=== PATIENT | female | born 1990 | race Caucasian/White ===

== ENCOUNTER 2018-02-08 03:32 | Inpatient (IN) ==
--- OUTSIDE RECORDS SUMMARY | 2018-02-08 06:16 | External Medical Summary | Continuity of Care Document ---
:1990 Author Organization [facility] Address [address] [place], [place] [id number] Phone Allergies, Adverse Reactions, Alerts Substance Reaction Severity Status metronidazole hives Unknown Active Medications Medication Instructions Dosage Effective Dates (start - Status Comments stop) ORAL TABLET - Active Problems Condition Effective Dates (start - stop) Clinical Status Encounter for suprvsn of normal - , second trimester 18 weeks gestation of - Encounter for suprvsn of normal - , first trimester 10 weeks gestation of - Hirsutism Irregular Menses Hirsutism - Irregular Menses 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 Pap Smear Screening, Cervix Matern care for oth or susp poor fetl - grth, 2nd tri, unsp 18 weeks gestation of - Encounter for suprvsn of normal - , second trimester 14 weeks gestation of - Procedures Procedure Date OB Visit No Charge - 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 Provider: Health [place], , second 7 [address] [place] Ashraf [email or web address] weeks Medical K, 700 1522, gestation of [place] Nickolas Yepez, , [facility] [place], 120, [place] 120, [id number], [place], [place], tel:[phone]. , [place]. tel: tel: [phone] Wan Matern care for Nov-0 Ashraf Referring In Womens Ultrasound oth or susp poor 6-201 [place]. Provider: Qian LUNDBERG, fetl grth, 2nd 7 [address] [place] Ashraf PO Box tri, [email or web address] weeks Medical , 700 1522, gestation of [facility], , [facility] [place], 120, [place] 120, [id number], [place], [place]O, tel: [phone]. , [place]. tel: tel: [phone] Wan Encounter for Oct-0 Ashraf Referring In Womens suprvsn of normal 3-201 [place]. Provider: Qian LUNDBERG, , second 7 [address] [place] Ashraf [address] [email or web address] weeks Medical , 700 1522, [facility], , [facility] Dr AGUAYO, 120, [place] 120, [id number], [place], [place], tel: [phone]. , [place]. tel: tel: [phone] Wan Encounter for Sep-0 Ashraf Referring In Womens suprvsn of normal 5-201 [place]. Provider: Qian LUNDBERG, , first 7 [address] [place] Ashraf [address] [email or web address] weeks Medical , 700 1522, gestation of [facility] [place], , [facility] Dr AGUAYO, 120, [place] 120, [id number], [place], [place], tel: [phone]. , [place]. tel: tel: [phone] Wan Hirsutism Nov-2 Ashraf Referring In Womens 8-201 [place]. Provider: Qian LUNDBERG, 6 700 [place] Ashraf PO Box Medical , 700 1522, [facility] [place], , [facility] Dr AGAUYO, 120, [place] 120, [id number], [place], [place], [place], tel:[phone]. , [place]. tel: tel: [phone] [facility] [place] HirsutismIrregula Sep- Ashraf In Womens r Menses 7-201 [place]. Health [place], 6 700 [address] Medical [address], [place] [address] [place], [place], 120, [id number], [facility] [place], tel: [phone] , [place]. tel: [phone] Peace [place] Irregular Adria-2 Ashraf Referring In Womens MensesEncntr for 8-201 [place]. Provider: Health [place], newswriter exam 6 700 [place] Ashraf PO Box (general) Medical K, 700 1522, (routine) w/o abn [place] Yepez, findingsPap Smear , [facility] Dr AGUAYO, Screening, Cervix 120, [place] 120, , [place], [place], [place], [place], tel: [phone]. , [place]. tel: tel: [phone] Peace Wan Aug-0 Ashraf In Womens 4-201 [place]. Health [place], 3 700 [address] Medical [address], [place] [address] [place], [facility] [place], 120, [id number], [facility] [place], tel: [phone] , [place]. tel: [phone] Family History Family Member Diagnosis Age At Onset No family history of Breast Cancer No family history of Pulmonary Embolism No family history of Uterine Cancer No family history of Venous Thrombosis Maternal Grandfather Cardiovascular Disease No family history of Ovarian Cancer Maternal Grandmother Thyroid Disorder No family history of Colon Cancer Immunizations Vaccine Date Status Comments Unknown Payers Payer name Insurance type Covered constitution party ID Authorization(s) NATALIE CRESPO [id number] Social History Type Description Quantity Date Captured Alcohol Use Details No Caffeine Use Details soda 16 oz per day Tobacco Use Status Ex-cigarette smoker Smoking Status Former smoker Vital Signs Date / Height Weight BMI Pulse Blood Temperature Respiratory Body Head BMI Time: Rate Pressure Rate Surface Circumference percentile Area 146.30 22.9 112/71 lbs 1 mm[Hg] 8:45 kg/m AM eter (2) Chief Complaint And Reason For Visit Unknown Chief Complaint And Reason For Visit Reason For Referral Reason For Referral Unknown Plan Of Care Date Type Action Status Goal Tobacco cessation counseling completed Appointment Mechelle Ware BOOKED Future Order: Lab Order Pap Smear With HPV Reflex If Ordered ASCUS ([id number]) Future Order: Radiology Order Complete OB Ultrasound > 14 Ordered Weeks ([id number]) Date Type Problem Goal Intervention Status Start Date Unknown. History Of Present Illness Encounter Date Complaint History Of Present Illness This patient has no known history of present illness Functional Status Encounter Date Functional Assessment Cognitive Assessment Unknown Medications Administered Medication Instructions Dosage Effective Dates (start - stop) Status Comments Drug Treatment Unknown Instructions Date Instruction Additional Information HIV and other routine tests risk factors identified by history anticipated course of care nutrition and weight gain counseling, special diet toxoplasmosis precautions (cats / raw meat) exercise indications for ultrasound influenza vaccine environmental / work hazards travel tobacco (ask, advise, assess, assist and arrange) alcohol illicit / recreational drugs use of any medications (including supplements, vitamins, herbs, OTC drugs) smoking counseling domestic violence seat belt use genetic testing new ob handbook Zika virus assessment & precautions dentist
--- OUTSIDE RECORDS SUMMARY | 2018-02-08 06:16 | External Medical Summary | Continuity of Care Document ---
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 Pap Smear Screening, Cervix Matern care for oth or susp poor fetl - grth, 2nd tri, unsp 18 weeks gestation of - Encounter for suprvsn of normal - , second trimester 26 weeks gestation of - Encounter for suprvsn of normal - , second trimester 14 weeks gestation of - Encounter for suprvsn of normal - , second trimester 18 weeks gestation of - Encounter for suprvsn of normal - , second trimester 23 weeks gestation of - Encounter for suprvsn of normal - , third trimester 32 weeks gestation of - Encounter for suprvsn of normal - , third trimester 28 weeks gestation of - Procedures Procedure Date Immuniz admnin, 1 vac, sngl/combo 19 Yrs + TDAP VACCINE >7 IM non-stress test OB Visit No Charge Results Test Name Date and Time Measure Units Reference Range Abnormal Flag Comments Unknown Advance Directives Directive Yes / No Effective Date File Name Unknown Encounters Encounter Practice Location Reason(s) Diagnoses Date Provider Care Team Description For Visit Members Peace Wan Encounter for Dec-0 Ashraf Referring In Womens suprvsn of normal 6-201 [place]. Provider: Health TAMIKA, , third 8 [address] [place] Ashraf [address] [email or web address] weeks Medical , 700 1522, gestation of [facility] [place], , [facility] Dr AGUYAO, 120, [place] 120, [id number], [place], [place] AGUAYO, tel: [phone]. , [place]. tel: tel: [phone] Peace Wan Decreased Nov- Ashraf Referring In Womens movements, third 3-201 [place]. Provider: Health TAMIKA, trimester, unsp30 8 700 [place] Ashraf PO Box weeks gestation Medical K, 700 1522, of [place] Nickolas Yepez, , [facility] Dr AGUAYO, 120, [place] 120, [id number], [place], [place], tel: [phone]. , [place]. tel: tel: [phone] Peace Wan Encounter for Nov-0 Ashraf Referring In Womens suprvsn of normal 9-201 [place]. Provider: Health TAMIKA, , third 8 [address] [place] Ashraf PO Box weeks Medical , 700 1522, gestation of [place] Nickolas Yepez, , [facility] Dr AGUAYO, 120, [place] 120, [id number], [place], [place], tel: [phone]. , [place]. tel: tel: [phone] Peace Wan Encounter for Oct-2 Ashraf Referring In Womens suprvsn of normal 6-201 [place]. Provider: Health TAMIKA, , second 7 [address] [place] Ashraf PO [address] [email or web address] weeks Medical , 700 1522, gestation of [facility], , [facility] Dr AGUAYO, 120, [place] 120, [id number], [place], [place], tel: [phone]. , [place]. tel: tel: [phone] Peace Wan Encounter for Dec-0 Ashraf Referring In Womens suprvsn of normal 5-201 [place]. Provider: Health TAIMKA, , second 7 [address] [place] Ashraf PO [address] [email or web address] weeks Medical , 700 1522, gestation of [facility], , [facility] Dr AGUAYO, 120, [place] 120, [id number], [place], [place], tel: [phone]. , [place]. tel: tel: [phone] Wan Encounter for Nov-0 Ashraf Referring In Womens suprvsn of normal 6-201 [place]. Provider: Qian LUNDBERG, , second 7 [address] [place] Ashraf PO Box [email or web address] weeks Medical , 700 1522, gestation of [facility], , [facility] Dr AGUAYO, 120, [place] 120, [id number], [place], [place], tel: [phone]. , [place]. tel: tel: [phone] Wan Matern care for Nov-0 Ashraf Referring In Womens Ultrasound oth or susp poor 6-201 [place]. Provider: Health TAMIKA, fetl grth, 2nd 7 [address] [place] Ashraf PO Box tri, [email or web address] weeks Medical , 700 1522, [facility], , [facility] Dr AGUAYO, 120, [place] 120, [id number], [place], [place]UAY[place], tel: [phone]. , [place]. tel: tel: [phone] Wan Encounter for Oct-0 Ashraf Referring In Womens suprvsn of normal 3-201 [place]. Provider: Qian LUNDBERG, , second 7 [address] [place] Ashraf PO Box [email or web address] weeks Medical , 700 1522, gestation of [place] Nickolas Yepez, , [facility] Dr AGUAYO, 120, [place] 120, [id number], [place], [place], [place], tel:[phone]. , [place]. tel: tel: [phone] Peace Wan Encounter for Sep-0 Ashraf Referring In Womens suprvsn of normal 5-201 [place]. Provider: Qian LUNDBERG, , first 7 [address] [place] Ashraf PO Box [email or web address] weeks Medical , 700 1522, gestation of [place] Nickolas Yepez, , [facility] [place], 120, [place] 120, , [place], [place], [place], tel:[phone]. , [place]. tel: tel: [phone] Peace [place] Hirsutism Nov-2 Ashraf Referring In Womens 8-201 [place]. Provider: Qian LUNDBERG, 6 700 [place] Ashraf PO Box Medical , 700 1522, [place] [address], [facility] Dr AGUAYO, 120, [place] 120, [id number], [place], [place], [place], tel: [phone]. , [place]. tel: tel: [phone] [place] HirsutismIrregula Nov-1 Ashraf In Womens r Menses 7-201 [place]. Health TAMIKA, 6 700 PO [address] Medical [address], [place] [address] [place], [facility] [place], 120, [id number], [place], [place], tel: [phone] , [place]. tel: [phone] [place] Irregular Adria-2 Ashraf Referring In Womens MensesEncntr for 8-201 [place]. Provider: Health TAMIKA, dope mixer exam 6 700 [place] Ashraf PO Box (general) Medical , 700 1522, (routine) w/o abn [place] Nickolas Yepez, findingsPap Smear , [facility] Dr AGUAYO, Screening, Cervix 120, [place] 120, [id number], [place], [place], [place], tel: [phone]. , . tel: tel: [phone] Peace Wan Aug- Ashraf In Womens 4-201 [place]. [facility], 3 700 PO [place] [facility] [address], [place] [address] [place], [facility] [place], 120, [id number], [facility] [place], tel: [phone] , [place]. tel: [phone] Family History Family Member Diagnosis Age At Onset No family history of Breast Cancer No family history of Pulmonary Embolism No family history of Uterine Cancer No family history of Venous Thrombosis Maternal Grandfather Cardiovascular Disease No family history of Ovarian Cancer Maternal Grandmother Thyroid Disorder No family history of Colon Cancer Immunizations Vaccine Date Status Comments Tdap completed Source: New Immunization Record Payers Payer name Insurance type Covered constitution party ID Authorization(s) [facility] CI [id number] [employer] [place] - Medicaid MC [id number] [facility] [id number] [facility] CI [id number] Social History Type Description Quantity Date Captured Alcohol Use Details No Caffeine Use Details Unknown Tobacco Use Status Smoking Status Former smoker Vital Signs Date / Height Weight BMI Pulse Blood Temperature Respiratory Body Head BMI Time: Rate Pressure Rate Surface Circumference percentile Area 152.10 23.8 111/ lbs 2 mm[Hg] 11:18 kg/m AM eter (2) Chief Complaint And [...] Complete OB Ultrasound > 14 Ordered Weeks (45656) Date Type Problem Goal Intervention Status Start Date Unknown. History Of Present Illness Encounter Date Complaint History Of Present Illness This patient has no known history of present illness Functional Status Encounter Date Functional Assessment Cognitive Assessment Unknown Medications Administered Medication Instructions Dosage Effective Dates (start - stop) Status Comments Drug Treatment Unknown Instructions Date Instruction Additional Information gestational glucose lab screening HIV and other routine tests risk factors [...]
--- OUTSIDE RECORDS SUMMARY | 2018-02-08 06:16 | External Medical Summary | Continuity of Care Document ---
:1990 Author Organization [facility] Address [address] [place] [id number] Phone Allergies, Adverse Reactions, Alerts Substance Reaction Severity Status metronidazole hives Unknown Active Medications Medication Instructions Dosage Effective Dates Status Comments (start - stop) ORAL - Active TABLET amoxicillin 500 mg take 1 tablet by 500 MG - No Longer tablet oral route every 8 Active hours Problems Condition Effective Dates (start - stop) Clinical Status Encounter for suprvsn of normal - , second trimester 23 weeks gestation of - Encounter for suprvsn of normal - , first trimester 10 weeks gestation of - Hirsutism Irregular Menses Hirsutism - Irregular Menses 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 Provider: Qian LUNDBERG, , second 7 [address] [place] Ashraf PO Box [email or web address] weeks Medical , 700 1522, gestation of [facility], , [facility] Dr AGUAYO, 120, [place] 120, , [place], [place], [place], tel: [phone]. , [place]. tel: tel: [phone] Peace Wan Encounter for Dec-0 Ashraf Referring In Womens suprvsn of normal 5-201 [place]. Provider: Qian LUNDBERG, , second 7 700 [place] Ashraf PO Box [email or web address] weeks [facility], 700 1522, gestation of [facility], , [facility] Dr AGUAYO, 120, [place] 120, , [place], [place], [place], tel: [phone]. , [place]. tel: tel: [phone] [place] Wan Encounter for Nov-0 Ashraf Referring In Womens suprvsn of normal 6-201 [place]. Provider: Qian LUNDBERG, , second 7 [address] [place] Ashraf PO Box [email or web address] weeks Medical , 700 1522, gestation of [facility], , [facility] Dr AGUAYO, 120, [place] 120, [id number], [place], [place], [place], tel: [phone]. , [place]. tel: tel: [phone] Peace Wan Matern care for Nov-0 Ashraf Referring In Womens Ultrasound oth or susp poor 6-201 [place]. Provider: Qian LUNDBERG, fetl grth, 2nd 7 [address] [place] Ashraf PO Box tri, [email or web address] weeks [facility], 700 1522, gestation of [facility], , [facility] Dr AGUAYO, 120, [place] 120, , [place], [place], [place], tel: [phone]. , [place]. tel: tel: [phone] [place] Wan Encounter for Oct-0 Ashraf Referring In Womens suprvsn of normal 3-201 [place]. Provider: Qian LUNDBERG, , second 7 [address] [place] Ashraf PO Box [email or web address] weeks Medical , 700 1522, gestation of [facility] [place], , [facility] Dr AGUAYO, 120, [place] 120, [id number], [place], [place], [place], tel: [phone]. , [place]. tel: tel: [phone] [place] Encounter for Sep-0 Ashraf Referring In Womens suprvsn of normal 5-201 [place]. Provider: Qian LUNDBERG, , first 7 [address] [place] Ashraf PO Box [email or web address] weeks Medical , 700 1522, gestation of [facility] [place], , [facility] Dr AGUAYO, 120, [place] 120, , [place], [place], [place], tel: [phone]. , [place]. tel: tel: [phone] [facility] [place] Hirsutism Nov-2 Ashraf Referring In Womens 8-201 [place]. Provider: Qian LUNDBERG, 6 700 [place] Ashraf PO Box Medical , 700 1522, [place] [address], [facility] Dr [place], 120, [place] 120, [id number], [place], [facility], [place], tel: [phone]. , [place]. tel: tel: [phone] [place] HirsutismIrregula Nov-1 Ashraf In Womens r Menses 7-201 [place]. Qian LUNDBERG, 6 700 [address] Medical [address], [place] [address] [place], [facility] [place], 120, , [place], [facility], tel: [phone] , [place]. tel: [phone] [place] Irregular Adria-2 Ashraf Referring In Womens MensesEncntr for 8-201 [place]. Provider: Qian LUNDBERG, obgyn nurse exam 6 700 [place] Ashraf PO Box (general) Medical , 700 1522, (routine) w/o [facility] [place], findingsPap Smear , [facility] Dr AGUAY[place], Screening, [place]erv[place] 120, [place] 120, [id number], [place], [place], [place], tel: [phone]. , [place]. tel: tel: [phone] [place] Aug- Ashraf In Womens 4-201 [facility], 3 700 [facility] 1522, [place] [address] [place], [facility] [place], 120, [id number], [place], [place], tel: [phone] , [place]. tel: [phone] Family History Family Member Diagnosis Age At [...] Unknown Payers Payer name Insurance type Covered alliance party ID Authorization(s) [facility] [id number] Social History Type Description Quantity Date Captured Alcohol Use Details No Caffeine Use Details soda 16 oz per day Tobacco Use Status Ex-cigarette smoker Smoking Status Former smoker Vital Signs Date / Height Weight BMI Pulse Blood Temperature Respiratory Body Head BMI Time: Rate Pressure Rate Surface Circumference percentile Area 9 1 11:24 kg/m AM eter (2) 144.60 22.6 111/69 -2017 lbs 4 mm[Hg] 11:28 kg/m AM eter (2) Chief Complaint And [...] Complete OB Ultrasound > 14 Ordered Weeks (40927) Date Type Problem Goal Intervention Status Start [...]
--- OUTSIDE RECORDS SUMMARY | 2018-02-08 06:16 | External Medical Summary | Continuity of Care Document ---
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) w/o abn findings Pap Smear Screening, Cervix Matern care for oth or susp poor fetl - grth, 2nd tri, unsp 18 weeks gestation of - Decreased movements, third - trimester, unsp 30 [...] weeks gestation of - Procedures Procedure Date Antepartum care only, 4-6 visits Results Test Name Date and Time Measure Units Reference Range Abnormal Flag Comments Unknown Advance Directives Directive Yes / No Effective Date File Name Unknown Encounters Encounter Practice Location Reason(s) Diagnoses Date Provider Care Team Description For Visit Members Peace Wan Encounter for Dec-0 Ashraf Referring In Womens suprvsn of normal 6-201 [place]. Provider: Qian ULNDBERG, , third 8 700 [place] Ashraf [email or web address] weeks Medical , 700 1522, [facility], , [facility] Dr AGUAYO, 120, [place] 120, , [place], [place], [place], tel: [phone]. , [place]. tel: tel: [phone] Peace Wan Decreased Irving-2 Ashraf Referring In Womens movements, third 3-201 [place]. Provider: Qian LUNDBERG, trimester, unsp30 8 700 [place] Ashraf PO Box weeks gestation Medical , 700 1522, of [facility] [place], , [facility] Dr AGUAYO, 120, [place] 120, , [place], [place], [place], tel: [phone]. , [place]. tel: tel: [phone] Peace Wan Encounter for Irving-0 Ashraf Referring In Womens suprvsn of normal 9-201 [place]. Provider: iQan LUNDBERG, , third 8 700 [place] Ashraf [address] [email or web address] weeks Medical , 700 1522, gestation of [facility], , [facility] Dr AGUAYO, 120, [place] 120, [id number], [place], [place], [place], tel: [phone]. , [place]. tel: tel: [phone] Peace Wan Encounter for Dec-2 Ashraf Referring In Womens suprvsn of normal 6-201 [place]. Provider: Qian LUNDBERG, , second 7 700 [place] Ashraf PO Box weeks Medical , 700 1522, gestation of [facility], , [facility] Dr AGUAYO, 120, [place] 120, [id number], [place], [place], [place], tel: [phone]. , [place]. tel: tel: [phone] Peace Wan Encounter for Dec-0 Ashraf Referring In Womens suprvsn of normal 5-201 [place]. Provider: Qian LUNDBERG, , second 7 700 [place] Ashraf PO [address] [email or web address] weeks Medical , 700 1522, gestation of [facility], , [facility] Dr AGUAYO, 120, [place] 120, [id number], [place], [place], [place], tel: [phone]. , [place]. tel: tel: [phone] Wan Encounter for Nov-0 Ashraf Referring In Womens suprvsn of normal 6-201 [place]. Provider: Qian LUNDBERG, , second 7 700 [place] Ashraf PO Box [id number] weeks [facility], 700 1522, gestation of [facility], , [facility] Dr AGUAYO, 120, [place] 120, [id number], [place], [place], [place], tel: [phone]. , [place]. tel: tel: [phone] Peace [facility] Matern care for Nov-0 Ashraf Referring In Womens Ultrasound oth or susp poor 6-201 [place]. Provider: Qian LUNDBERG, [facility]l [facility], 2nd 7 700 [place] Ashraf PO Box tri, [id number] weeks [facility], 700 1522, gestation of [facility], , [facility] Dr AGUAYO, 120, Paul 120, [id number], [place], [place], [place], tel: [phone]. , [place]. tel: tel: [phone] Wan Encounter for Oct-0 Ashraf Referring In Womens suprvsn of normal 3-201 [place]. Provider: Qian LUNDBERG, , second 7 700 [place] Ashraf PO Box [email or web address] weeks [facility], 700 1522, gestation of [facility], , [facility] Dr [place], 120, [place] 120, [id number], [place], [place], [place], tel: [phone]. , [place]. tel: tel: [phone] Peace Wan Encounter for Sep-0 Ashraf Referring In Womens suprvsn of normal 5-201 [place]. Provider: Health PA, , first 7 700 [place] Ashraf PO Box [id number] weeks [facility], 700 1522, gestation of [facility] [place], , [facility] [place], 120, [place] 120, [id number], [place], [facility], [place], tel: [phone]. , [place]. tel: tel: [phone] Peace Wan Sep-0 Ashraf Referring In Womens 5-201 [place]. Provider: Health TAMIKA, 7 700 [place] Ashraf PO [facility], 700 1522, [place] [address], [facility] [place], 120, [place] 120, [id number], [place], [facility], [place], tel: [phone]. , [place]. tel: tel: [phone] [facility] [place] H[facility]utism Nov-2 Ashraf Referring In Womens 8-201 [place]. Provider: Health TAMIKA, 6 700 [place] Ashraf PO Box [facility], 700 1522, [place] [address], [facility] Dr AGUAYO, 120, [place] 120, [id number], [place], [place], [place], tel: [phone]. , [place]. tel: tel: [phone] Peace [facility] HirsutismIrregula Nov-1 Ashraf In Womens r Menses 7-201 [place]. Health PA, 6 700 PO [place] [facility] [address], [place] [address] [place]uch[place], [facility] [place], 120, [id number], [place], [place], tel: [phone] , [place]. tel: [phone] Peace Wan Irregular Adria-2 Ashraf Referring In Women MensesEncntr for 8-201 [place]. Provider: Health TAMIKA, procedures analyst exam 6 700 [place] Ashraf PO Box (general) Medical K, 700 1522, (routine) w/o [facility] Medical [place], findingsPap Smear , [facility] Dr AGUAYO, Screening, Cervix 120, [place] 120, [id number], [place], [place], tel: [phone]. , [place]. tel: tel: [phone] Peace Wan Aug- Ashraf In Womens 4-201 [place]. Health TAMIKA, 3 700 PO Box Medical [address], [place] [address] Lucho, [facility] [place], 120, [id number], [place], [place], tel: [phone] , [place]. tel: [phone] Family History Family Member Diagnosis Age At [...] Covered constitution party ID Authorization(s) NATALIE CRESPO [id number] [facility] CI [id number] [employer] Plan Of [place] - Medicaid MC [id number] [facility] CI [id number] Social History Type Description Quantity Date Captured Unknown Vital Signs Date / Height Weight BMI Pulse Blood Temperature Respiratory Body Head BMI Time: Rate Pressure Rate Surface Circumference percentile Area Unknown Chief Complaint And Reason For Visit Unknown Chief Complaint And Reason For Visit Reason For Referral Reason For Referral Unknown Plan Of Care Date Type Action Status Goal Tobacco cessation counseling completed Appointment Mechelle Ware BOOKED Future Order: Lab Order Pap Smear With HPV Reflex If Ordered ASCUS (WPMPap1) Future Order: Radiology Order Complete OB Ultrasound > 14 Ordered Weeks ([id number]) Date Type Problem Goal Intervention Status Start [...]
--- OUTSIDE RECORDS SUMMARY | 2018-02-08 06:16 | External Medical Summary | Continuity of Care Document ---
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 Health PA, 7 700 PO Box Medical [address], [place] [address], [place], 120, [id number], [facility] [place], tel: [phone] , [place]. tel: [phone] Peace [place] Encounter for Sep-0 Ashraf Referring In Womens suprvsn of normal 5-201 [place]. Provider: Health PA, , first 7 700 [place] Ashraf PO Box [email or web address] weeks Medical K, 700 1522, gestation of [place]olas Yepez , [facility] [place], 120, [place] 120, [id number], [place], [place], [place], tel: [phone]. , [place]. tel: tel: [phone] [place] Hirsutism Nov-2 Ashraf Referring In Womens 8-201 [place]. Provider: Qian LUNDBERG, 6 700 [place] Ashraf PO Box Medical K, 700 1522, [place] [address], [facility] [place], 120, [place] 120, [id number], [place], [place], [place], tel:[phone]. , [place]. tel: tel: [phone] Peace Wan HirsutismIrregular Nov-1 Ashraf In Womens Menses 7-201 [place]. Qian LUNDBERG, 6 700 PO Box Medical [address], [place] [address], [facility] [place], 120, [id number], [facility] [place], tel: [phone] , [place]. tel: [phone] Peace Wan Irregular Adria-2 Ashraf Referring In Womens MensesEncntr for 8-201 [place]. Provider: Qian LUNDBERG, linen aide exam (general) 6 700 [place] Ashraf PO Box (routine) w/o [facility] Medical K, 700 1522, findingsPap Smear [facility] [place], [place], Cervix , [facility] Dr AGUAYO, 120, Paul 120, [id number], [place], [facility], [place], tel:[phone]. , [place]. tel: tel: [phone] Peace Wan Oct-0 Ashraf In Womens 4-201 [place]. Qian LUNDBERG, 3 700 [facility] Medical 15[address], [address], [facility] [place], 120, [id number], [facility] [place], tel: [phone] , [place]. tel: [phone] Family History Family Member Diagnosis Age At [...] Insurance type Covered alliance party ID Authorization(s) TOBY CRESPO [id number] Social History Type Description Quantity Date Captured [...] Order Pap Smear With HPV Reflex If ASCUS Ordered (WPMPap1) Date Type Problem Goal Intervention Status Start [...]
--- OUTSIDE RECORDS SUMMARY | 2018-02-08 06:16 | External Medical Summary | Continuity of Care Document ---
:1990 Author Organization 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 Pap Smear Screening, Cervix Procedures Procedure Date No Charge Sonogram Initial OB Visit No Charge Urine Culture OB Panel With An HIV Venpnctr fngr/heel/ear stick routne Cult, bactr, ident isolate, urine Cult bactr, aerobic, addl methods Suscept study, microdilut/agar FRANCISCA Results Test Name Date and Time Measure Units Reference Range Abnormal Flag Comments Panel Description: OBSTETRIC PANEL WHITE BLOOD CELL 7.4 Thousand/uL 3.8-10.8 N COUNT 16:06:00 RED BLOOD CELL 4.01 Million/uL 3.80-5.10 N COUNT 16:06:00 HEMOGLOBIN 12.3 g/dL 11.7-15.5 N 16:06:00 HEMATOCRIT 35.2 % 35.0-45.0 N 16:06:00 MCV 87.8 fL 80.0-100.0 N 16:06:00 MCH 30.7 pg 27.0-33.0 N 16:06:00 MCHC 34.9 g/dL 32.0-36.0 N 16:06:00 RDW 12.2 % 11.0-15.0 N 16:06:00 PLATELET COUNT 236 Thousand/uL 140-400 N 16:06:00 MPV 10.6 fL 7.5-12.5 N 16:06:00 ABSOLUTE 5002 cells/uL 2156-5122 N NEUTROPHILS 16:06:00 ABSOLUTE 1569 cells/uL 850-3900 N LYMPHOCYTES 16:06:00 ABSOLUTE 629 cells/uL 200-950 N MONOCYTES 16:06:00 ABSOLUTE 148 cells/uL 15-500 N EOSINOPHILS 16:06:00 ABSOLUTE 52 cells/uL 0-200 N BASOPHILS 16:06:00 NEUTROPHILS 67.6 % N 16:06:00 LYMPHOCYTES 21.2 % N 16:06:00 MONOCYTES 8.5 % N 16:06:00 EOSINOPHILS 2.0 % N 16:06:00 BASOPHILS 0.7 % N 16:06:00 ANTIBODY SCREEN, NO ANTIBODIES N RBC W/REFL ID, 16:06:00 DETECTED Reference range TITER AND AG No antibodies detected This assay is a screening test for the detection of red blood cell antibodies. The test is not to be used for pretransfusion screening or for the medical management of an alloimmunized . ABO GROUP B 16:06:00 RH TYPE RH(D) 16:06:00 POSITIVE RPR (DX) W/REFL NON-REACTIVE NON-REACTIV N TITER AND 16:06:00 E CONFIRMATORY TESTING HEPATITIS B NON-REACTIVE NON-REACTIV N SURFACE ANTIGEN 16:06:00 E RUBELLA ANTIBODY <0.90 index L Index (IGG) 16:06:00 Interpretation ----- <0.90 Not consistent with Immunity 0.90-0.99 Equivocal > or=1.00 Consistent with Immunity The presence of rubella IgG antibody suggests immunization or past or current infection withrubella virus.Test performed at [facility] [id number] [place] [id number] r: REYNALDO CAROLINA DO,MPH Panel Description: HIV 1/2 ANTIGEN/ANTIBODY,FOURTH GENERATION W/RFL HIV NON-REACTIVE NON-REACTIVE N HIV-1 antigen and HIV-1/HIV- 2 antibodies were AG/AB, 16:06:00 notdetected. There is no laboratory evidence of 4TH GEN HIVinfection. PLEASE NOTE: This information has been disclosed toyou from records whose confidentiality may beprotected by state law. If your state requires suchprotection, then the state law prohibits you frommaking any further disclosure of the informationwithout the specific written consent of the personto whom it pertains, or as otherwise permitted by law.A general authorization for the release of medical orother information is NOT sufficient for this purpose. For additional information please refer tohttp://education.[employer]faq/KRW938(This link is being provided for informational/educational purposes only.) The performance of this assay has not been clinicallyvalidated in patients less than 2 years old. REPORT COMMENT:FASTING:NOTest performed at [facility] [address] [address]Ftknltgu: REYNALDO CAROLINA DO,MPH Panel Description: Bacteria identified in Urine by Culture CULTURE, URINE, 16:12:00 SEE NOTE A CULTURE, URINE, ROUTINE ROUTINE MICRO NUMBER: [id number] TEST STATUS: PRELIMINARY SPECIMEN SOURCE: URINE, CLEAN CATCH SPECIMEN QUALITY: ADEQUATE RESULT: 10,000-50,000 CFU/mL of Escherichia coli , susceptibility test report to follow. COMMENT: Additional organism(s) less than 10,000 CFU/mL isolated. These organisms, commonly found on external and internal genitalia, are considered colonizers. No further testing performed.REPORT COMMENT:RFASTING:NOTest performed at [facility] [address] [address]Ftwkroxy: REYNALDO CAROLINA DO,MPH Panel Description: Bacteria identified in Urine by Culture CULTURE, URINE, 16:12:00 SEE NOTE A CULTURE, URINE, ROUTINE ROUTINE MICRO NUMBER: [id number] TEST STATUS: FINAL SPECIMEN SOURCE: URINE, CLEAN CATCH SPECIMEN QUALITY: ADEQUATE RESULT: 10,000-50,000 CFU/mL of Escherichia coli COMMENT: Additional organism(s) less than 10,000 CFU/mL isolated. These organisms, commonly found on external and internal genitalia, are considered colonizers. No further testing performed. E.coli INT FRANCISCA AMOX/CLAVULANATE S 4 AMPICILLIN R >=32 AMP/SULBACTAM I 16 CEFAZOLIN NR <=4 1 CEFEPIME S <=1 CEFTRIAXONE S <=1 CIPROFLOXACIN R >=4 ERTAPENEM S <=0.5 GENTAMICIN S <=1 IMIPENEM S <=0.25 LEVOFLOXACIN R >=8 NITROFURANTOIN S <=16 PIP/TAZOBACTAM S <=4 TOBRAMYCIN S <=1 TRIMETHOPRIM/SULFA S <=20S=Susceptible I=Intermediate R=Resistant *=Not TestedNR=Not Reported NN=See Therapy CommentsTHERAPY COMMENTS Note 1: ORAL therapy: A cefazolin FRANCISCA of < 32 predicts susceptibility to the oral agents cefaclor, cefdinir, cefpodoxime, cefprozil, cefuroxime, cephalexin, and loracarbef when used for therapy of uncomplicated UTIs due to E. coli, K. pneumoniae, and P. mirabilis. PARENTERAL therapy: A cefazolin FRANCISCA of > 8 indicates resistance to parenteral cefazolin. An alternate test method must be performed to to confirm susceptibility to parenteral cefazolin.REPORT COMMENT:RFASTING:NOTest performed at [facility] [id number] [place] [address]Eonuxfst: REYNALDO CAROLINA DO,MPH Panel Description: CHLAMYDIA/N. GONORRHOEAE RNA, TMA CHLAMYDIA NOT DETECTED NOT DETECTED N TRACHOMATIS RNA, 16:10:00 TMA NEISSERIA NOT DETECTED NOT DETECTED N GONORRHOEAE RNA, 16:10:00 TMA [id number] SEE NOTE This test was 16:10:00 performed using the APTIMA COMBO2 Assay([employer] The analytical performance characteristics of this assay, when used to test SurePath specimens havebeen determined by [employer]. REPORT COMMENT:FASTING:NOTes t performed at [facility] [id number] [place] [address]Jmfdqgrg: REYNALDO CAORLINA DO,MPH Panel Description: Pap Smear With HPV Reflex If ASCUS Document Pap smear 15:10:00 Negative per patient. Advance Directives Directive Yes / No Effective Date File Name Unknown Encounters Encounter Practice Location Reason(s) Diagnoses Date Provider Care Team Description For Visit Members Peace Wan Encounter for Ashraf Referring In Womens suprvsn of normal 5-201 [place]. Provider: Qian LUNDBERG, , first 7 700 [place] Ashraf PO Box [email or web address] [facility], 700 1522, gestation of [place] Nickolas Yepez, , [facility] Dr AGUAYO, 120, [place] 120, [id number], [place], [facility], [place], tel:+ [phone]. , [place]. tel: tel: [phone] Peace Wan Hirsutism Nov-2 Ashraf Referring In Womens 8-201 [place]. Provider: Qian LUNDBERG, 6 700 [place] Ashraf PO Box Medical , 700 1522, [place] [address], [facility] Dr AGUAYO, 120, [place] 120, [id number], [place], [facility], [place], tel: [phone]. , [place]. tel: tel: [phone] Peace Wan HirsutismIrregular Nov-1 Ashraf In Womens Menses 7-201 [place]. Health PA, 6 700 [facility] Medical 1522, [place] [address] Luch[place], [place], 120, [id number], [place], [place], tel:[phone] , [place]. tel: [phone] Peace Wan Irregular Adria-2 Ashraf Referring In Womens MensesEncntr for 8-201 [place]. 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 Dr [place], 120, [place] 120, [id number], [place], [place], [place], tel: [phone]. , [place]. tel: tel: [phone] [facility] [place] Ashraf In Womens 4201 [place]. Health TAMIKA, 3 700 PO Box Medical [address], [place] [address] [place], [place], 120, [id number], [facility] [place], tel: [phone] , [place]. tel: [phone] Family History Family Member Diagnosis Age At [...] Unknown Payers Payer name Insurance type Covered libertarian ID Authorization(s) [facility] [id number] Social History Type Description Quantity Date Captured Alcohol Use Details No Caffeine Use Details soda 16 oz per day Tobacco Use Status Ex-cigarette smoker Smoking Status Former smoker Smoking Tobacco Use Cigarette: Age Stopped: 26 Cigarette: No Details Available Details Vital Signs Date / Height Weight BMI Pulse Blood Temperature Respiratory Body Head BMI Time: Rate Pressure Rate Surface Circumference percentile Area 141.90 22.2 -2017 lbs 2 3:19 kg/m PM eter (2) 141.90 22.2 120/69 -2016 lbs 2 mm[Hg] 3:19 kg/m PM eter (2) Chief Complaint And Reason For [...]
--- OUTSIDE RECORDS SUMMARY | 2018-02-08 06:16 | External Medical Summary | Continuity of Care Document ---
:1990 Author Organization [facility] Address [address] [place], [place] [id number] Phone Allergies, Adverse Reactions, Alerts Substance Reaction Severity Status metronidazole hives Unknown Active Medications Medication Instructions Dosage Effective Dates Status Comments (start - stop) ORAL - Active TABLET Keflex 500 mg take 1 capsule by 500 MG - No Longer capsule ORAL route 3 times Active every day Problems Condition Effective Dates (start - stop) Clinical Status Encounter for suprvsn of normal - , second trimester 14 weeks gestation of - Encounter for suprvsn of normal - , first trimester 10 weeks gestation of - Hirsutism Irregular Menses Hirsutism - Irregular Menses 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 Provider: [facility], , second 7 [address] [place] Ashraf [address] [email or web address] weeks Medical K, 700 1522, gestation of [facility], , [facility] [address] [place], 120, [place] 120, [id number], [place], [place] AGUAYO, tel: [phone] , [place]. tel: tel: [phone] [place] Encounter for Sep-0 Ashraf Referring In Womens suprvsn of normal 5-201 [place]. Provider: Qian LUNDBERG, , first 7 [address] [place] Ashraf [address] [email or web address] weeks Medical , 700 1522, gestation of [facility] [place], , [facility] [place], 120, [place] 120, [id number], [place], [place], tel: [phone]. , [place]. tel: tel: [phone] [facility] [place] Hirsutism Nov-2 Ashraf Referring In Womens 8-201 [place]. Provider: Qian LUNDBERG, 6 700 [place] Ashraf PO Box [facility], [address], [facility] [address], [facility] [place], 120, [place] 120, , [place], [place], tel:[phone]. , [place]. tel: tel: [phone] Peace [place] HirsutismIrregular Nov-1 Ashraf In Womens Menses 7-201 [place]. Health TAMIKA, 6 700 PO [facility] [address] [place], [facility] [place], 120, , [place], [place], tel: [phone] , [place]. tel: [phone] [place] Irregular Adria-2 Ashraf Referring In Womens MensesEncntr for 8-201 [place]. 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 [place], Screening, Cervix , [facility] [place], 120, [place] 120, [id number], [place], [place], tel: [phone]. , [place]. tel: tel: [phone] [place] Oct-0 Ashraf In Womens 4-201 [place]. Qian LUNDBERG, 3 700 PO Box [facility] [address], [address] [place], [facility] [place], 120, [id number], [place], [place], tel:[phone] , . tel: [phone] Family History Family Member Diagnosis Age At [...] Insurance type Covered alliance party ID Authorization(s) [facility] DEDE [id number] Social History Type Description Quantity Date Captured Alcohol Use Details No Caffeine Use Details Unknown Tobacco Use Status Smoking Status Former smoker Vital Signs Date / Height Weight BMI Pulse Blood Temperature Respiratory Body Head BMI Time: Rate Pressure Rate Surface Circumference percentile Area 139.70 21.8 121/66 2017 lbs 8 mm[Hg] 2:53 kg/m PM eter (2) Chief Complaint And Reason For Visit Unknown Chief Complaint And Reason For Visit Reason For Referral Reason For Referral Unknown Plan Of Care Date Type Action Status Goal Tobacco cessation counseling completed Appointment Mechelle Ware BOOKED Appointment Mechelle Ware BOOKED Future Order: Lab [...]
[2018-02-08] MEDS ORDERED: METHYLERGONOVINE 0.2 MG/ML INJECTION IM PRN (06:17)
[2018-02-08] MEDS ORDERED: D5LR 1,000 ML IV PRN (06:17)
[2018-02-08] MEDS ORDERED: OXYTOCIN DRIP 30 UNIT/500 ML ML IV PRN (06:17)
[2018-02-08] MEDS ORDERED: LR 1,000 ML IV PRN (06:17)
[2018-02-08] MEDS ORDERED: ACETAMINOPHEN 500 MG TABLET PO PRN (06:17)
[2018-02-08] MEDS ORDERED: CARBOPROST 250 MCG/ML INJECTION IM PRN (06:17)
[2018-02-08] MEDS ORDERED: LIDOCAINE 1% (10mg/ml) 2mL INJ PF SDV ID PRN (06:17)
[2018-02-08] MEDS ORDERED: CALCIUM CARBONATE Chewable 500mg TABLET PO PRN (06:17)
[2018-02-08] MEDS ORDERED: MAG-AL + SIM ORAL LIQUID 30ml PO PRN (06:17)
--- OUTSIDE RECORDS SUMMARY | 2018-02-08 06:17 | External Medical Summary | Continuity of Care Document ---
:1990 Author Organization [facility] Address [address] [place], [place] [address] Phone Allergies, Adverse Reactions, Alerts Substance Reaction Severity Status metronidazole hives Unknown Active Medications Medication Instructions Dosage Effective Dates (start - Status Comments stop) ORAL TABLET - Active Problems Condition Effective Dates (start - stop) Clinical Status Matern care for oth or susp poor fetl - grth, 2nd tri, unsp 18 weeks gestation of - Encounter for suprvsn of normal - , first trimester 10 weeks gestation of - Hirsutism Irregular Menses Hirsutism - Irregular Menses 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 Pap Smear Screening, Cervix Encounter for suprvsn of normal - , second trimester 14 weeks gestation of - Encounter for suprvsn of normal - , second trimester 18 weeks gestation of - Procedures Procedure Date Ultrasound exam of preg uterus, complete Results Test Name Date and Time Measure Units Reference Range Abnormal Flag Comments Unknown Advance Directives Directive Yes / No Effective Date File Name Unknown Encounters Encounter Practice Location Reason(s) Diagnoses Date Provider Care Team Description For Visit Members Peace Wan Encounter for Ashraf Referring In [facility] suprvsn of normal 6-201 [place]. Provider: [facility] [place], , second 7 700 [place] Ashraf PO Box [id number] weeks Medical K, 700 1522, gestation of [place]olas Yepez, , [facility] [place], 120, [place] 120, [id number], [place], [place] AGUAY[place], tel:[phone]. , [place]. tel: tel: [phone] [place] Matern care for Nov-0 Ashraf Referring In Womens Ultrasound oth or susp poor 6-201 [place]. Provider: Qian LUNDBERG, fetl grth, 2nd 7 700 [place] Ashraf PO Box tri, [email or web address] weeks Medical , 700 1522, gestation of [facility], , [facility] [place], 120, [place] 120, [id number], [place], [place], tel: [phone]. , [place]. tel: tel: [phone] [place] Encounter for Oct-0 Ashraf Referring In Womens suprvsn of normal 3-201 [place]. Provider: Qian LUNDBERG, , second 7 700 [place] Ashraf PO Box [id number] weeks Medical , 700 1522, [facility] , [facility] Dr AGUAYO, 120, [place] 120, [id number], [place], [place], tel: [phone]. , [place]. tel: tel: [phone] [place] Encounter for Sep-0 Ashraf Referring In Womens suprvsn of normal 5-201 [place]. Provider: Qian LUNDBERG, , first 7 [address] [place] Ashraf PO Box [email or web address] weeks Medical , 700 1522, gestation of [facility] [place], , [facility] Dr AGUAYO, 120, [place] 120, [id number], [place], [place] AGUAY[place], tel: [phone]. , [place]. tel: tel: [phone] [place] Hirsutism Nov-2 Ashraf Referring In Womens 8-201 [place]. Provider: Qian LUNDBERG, 6 700 [place] Ashraf PO Box Medical , 700 1522, [facility] [place], , [facility] Dr AGUAYO, 120, [place] 120, [id number], [place], [place], [place], tel:[phone]. , [place]. tel: tel: [phone] [facility] [place] HirsutismIrregula Sep- Ashraf In Womens r Menses 7-201 [place]. Health [place], 6 700 PO Box Medical [address], [place] [address] [place], [place], 120, [id number], [facility] [place], tel: [phone] , [place]. tel: [phone] Peace [place] Irregular Apr- Ashraf Referring In Womens MensesEncntr for 8-201 [place]. 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 Dr AGUAYO, Screening, Cervix 120, [place] 120, , [place], [place], [place], [place], tel: [phone]. , [place]. tel: tel: [phone] Peace [place] Aug- Ashraf In Womens 4-201 [place]. Health [place], 3 700 PO Box Medical [address], [place] [address] [place], [facility] [place], 120, [id number], [facility] [place], tel: [phone] , [place]. tel: [phone] Family History Family Member Diagnosis Age At [...] Unknown Payers Payer name Insurance type Covered republican ID Authorization(s) NATALIE AGUAYO [id number] Social History Type Description Quantity Date Captured [...] completed Appointment Mechelle Ware BOOKED Future Order: Radiology Order Complete OB Ultrasound > 14 Ordered Weeks ([id number]) Future Order: Lab Order Pap Smear With HPV Reflex If Ordered ASCUS ([id number]) Date Type Problem Goal Intervention Status [...]
--- OUTSIDE RECORDS SUMMARY | 2018-02-08 06:17 | External Medical Summary | Continuity of Care Document ---
:1990 Author Organization [facility] Address [address] [place] [id number] Phone Allergies, Adverse Reactions, Alerts Substance Reaction Severity Status metronidazole hives Unknown Active Medications Medication Instructions Dosage Effective Dates (start - Status Comments stop) ORAL TABLET - Active Problems Condition Effective Dates (start - stop) Clinical Status Encounter for suprvsn of normal - , third trimester Encounter For Screening For - Streptococcus B 35 weeks gestation of - Encounter for suprvsn of normal - , first trimester 10 weeks gestation of - Hirsutism Irregular Menses Hirsutism - Irregular Menses 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 Pap Smear Screening, Cervix Matern care for oth or susp poor fetl - grth, 2nd tri, unsp 18 weeks gestation of - Matern care for oth or susp poor fetl - grth, third tri, unsp 37 weeks gestation of - Matern care for oth or susp poor fetl - grth, third tri, unsp Decreased movements, third - trimester, unsp 37 weeks gestation of - Decreased movements, third [...] suprvsn of normal - , third trimester 38 weeks gestation of - Encounter for suprvsn of normal - , third trimester 37 weeks gestation of - Encounter for suprvsn of normal - , third trimester 34 weeks gestation of - Encounter for suprvsn of normal - , third trimester 32 weeks gestation of - Encounter for suprvsn of normal - , third trimester 28 weeks gestation of - Procedures Procedure Date OB Visit No Charge Results Test Name Date and Time Measure Units Reference Range Abnormal Flag Comments Panel Description: Strep Gp B Culture Strep Gp B Negative Negative Centers for Disease Control Culture 14:20:00 and Prevention (CDC) and [place] Congressof Obstetricians and Gynecologists (ACOG) guidelines for prevention ofperinatal group B streptococcal (GBS) disease specify co-collection ofa vaginal and rectal swab specimen to maximize sensitivity of GBSdetection. Per the CDC and ACOG, swabbing both the lower vagina andrectum substantially increases the yield of detection compared withsampling the vagina alone. .Penicillin G, ampicillin, or cefazolin are indicated for intrapartumprophylaxis of GBS colonization. Reflex susceptibilitytesting should be performed prior to use of clindamycin only on GBSisolates from penicillin-allergic women who are considered a high riskfor anaphylaxis. Treatment with vancomycin without additional testingis warranted if resistance to clindamycin is noted. Advance Directives Directive Yes / No Effective Date File Name Unknown Encounters Encounter Practice Location Reason(s) Diagnoses Date Provider Care Team Description For Visit Members Peace Wan Encounter for Ashraf Referring In Womens suprvsn of normal 0-201 [place]. Provider: [facility], , third 8 700 [place]ly Alcocerb PO Box [email or web address] weeks Medical K, 700 1522, gestation of [facility], , [facility] Dr AGUAYO, 120, [place] 120, [id number], [place], [place] AGUAY[place], tel: [phone]. , [place]. tel: tel: [phone] [place] Encounter for Mar-1 Ashraf Referring In Womens suprvsn of normal 5-201 [place]. Provider: Health TAMIKA, , third 8 [address] [place] Ashraf PO Box [email or web address] weeks Medical , 700 1522, gestation of [facility], , [facility] Dr AGUAYO, 120, [place] 120, [id number], [place], [place], tel:[phone]. , [place]. tel: tel: [phone] [place] Matern care for Mar-1 Ashraf Referring In Womens Ultrasound oth or susp poor 5-201 [place]. Provider: Health TAMIKA, fetl grth, third 8 [address] [place] Ashraf PO Box tri, Medical K, 700 1522, unspDecreased [facility], movements, Dr, [facility] Dr AGUAYO, third trimester, 120, [place] 120, [id number], unsp37 weeks [place], gestation of [place] AGUAYO, tel: [phone]. , [place]. tel: tel: [phone] [place] Matern care for Mar-1 Ashraf Referring In Womens oth or susp poor 3-201 [place]. Provider: Health TAMIKA, fetl grth, third 8 700 [place] Ashraf PO Box tri, [email or web address] weeks Medical , 700 1522, gestation of [facility], , [facility] Dr [place]O, 120, [place] 120, [id number], [place], [place] AGUAYO, tel: [phone]. , [place]. tel: tel: [phone] [place] Encounter for Mar-0 Ashraf Referring In Womens suprvsn of normal 5-201 [place]. Provider: Health [facility], , third 8 700 [place] Ashraf PO Box trimesterEncounte Medical K, 700 1522, r For [facility] [place], Screening For Dr, [facility] Dr AGU[place]O, Streptococcus B35 120, [place] 120, [id number], weeks gestation [place], [place] of [place] AGUAYO, tel:[phone]. , [place]. tel: tel: [phone] [place] Encounter for Feb-2 Ashraf Referring In Womens suprvsn of normal 0-201 [place]. Provider: Health [place], , third 8 700 [place] Ashraf PO Box [email or web address] weeks Medical , 700 1522, gestation of [facility] [place], , [facility] Dr AGUAYO, 120, [place] 120, , [place], [place], tel:[phone]. , [place]. tel: tel: [phone] [place] Encounter for Feb-0 Ashraf Referring In Womens suprvsn of normal 6-201 [place]. Provider: Health [place], , third 8 700 [place] Ashraf PO Box [email or web address] weeks Medical , 700 1522, gestation of [facility] [place], , [facility] Dr AGUAYO, 120, [place] 120, [id number], [place], [place], tel:[phone]. , [place]. tel: tel: [phone] [place] Decreased Irving-2 Ashraf Referring In Womens movements, third 3-201 [place]. Provider: Health [facility], trimester, unsp30 8 700 [place] Ashraf PO Box weeks gestation Medical K, 700 1522, of [place] Nickolas Yepez, , [facility] Dr AGUAYO, 120, [place] 120, [id number], [place], [place], tel:[phone]. , [place]. tel: tel: [phone] [place] Encounter for Irving-0 Ashraf Referring In Womens suprvsn of normal 9-201 [place]. Provider: Health TAMIKA, , third 8 700 [place] Ashraf PO Box [email or web address] weeks Medical , 700 1522, gestation of [facility], , [facility] Dr [place]O, 120, [place] 120, [id number], [place], [facility], [place], tel:[phone]. , [place]. tel: tel: [phone] [place] Encounter for Dec-2 Ashraf Referring In Womens suprvsn of normal 6-201 [place]. Provider: Health TAMIKA, , second 7 700 [place] Ashraf PO Box [email or web address] weeks Medical , 700 1522, gestation of [facility], , [facility] Dr AGUAYO, 120, [place] 120, [id number], [place], [place], [place], tel:[phone]. , [place]. tel: tel: [phone] [place] Encounter for Dec-0 Ashraf Referring In Womens suprvsn of normal 5-201 [place]. Provider: Health [place], , second 7 700 [place] Ashraf PO Box [email or web address] weeks Medical , 700 1522, gestation of [facility], , [facility] Dr [place], 120, [place] 120, [id number], [place], [place], [place], tel:[phone]. , [place]. tel: tel: [phone] [place] Encounter for Nov-0 Ashraf Referring In Womens suprvsn of normal 6-201 [place]. Provider: Health [place], , second 7 [address] [place] Ashraf PO Box [email or web address] weeks Medical , 700 1522, [facility], , [facility] Dr AGUAYO, 120, [place] 120, [id number], [place], [place], [place], tel: [phone]. , [place]. tel: tel: [phone] [place] Matern care for Nov-0 Ashraf Referring In Womens Ultrasound oth or susp poor 6-201 [place]. Provider: Qian LUNDBERG, fetl grth, 2nd 7 700 [place] Ashraf PO Box tri, [email or web address] weeks Medical , 700 1522, gestation of [facility] [place], , [facility] Dr [place], 120, [place] 120, [id number], [place], [place], [place], tel: [phone]. , [place]. tel: tel: [phone] [place] Encounter for Oct-0 Ashraf Referring In Womens suprvsn of normal 3-201 [place]. Provider: Qian LUNDBERG, , second 7 700 [place] Ashraf PO Box [email or web address] weeks Medical , 700 1522, gestation of [facility] [place], , [facility] Dr [place], 120, [place] 120, [id number], [place], [place], [place], tel:[phone]. , [place]. tel: tel: [phone] [place] Encounter for Sep-0 Ashraf Referring In Womens suprvsn of normal 5-201 [place]. Provider: Qian LUNDBERG, , first 7 700 [place] Ashraf PO Box [email or web address] weeks Medical , 700 1522, gestation of [facility] [place], , [facility] Dr [place], 120, [place] 120, [id number], [place], [place], [place], tel: [phone]. , [place]. tel: tel: [phone] [place] Hirsutism Nov-2 Ashraf Referring In Womens 8-201 [place]. Provider: Qian LUNDBERG, 6 700 [place] Ashraf PO Box Medical , 700 1522, [place], [facility] Dr [place], 120, [place] 120, [id number], [place], [place], [place], tel:[phone]. , [place]. tel: tel: [phone] [place] HirsutismIrregula Nov- Ashraf In Womens r Menses 7-201 [place]. Health [facility], 6 700 PO Box Medical 15[address], [address] [place], [facility] [place], 120, [id number], [facility] [place], tel: [phone] , [place]. tel: [phone] [facility] [place] Irregular Adria-2 Ashraf Referring In Womens MensesEncntr for 8-201 [place]. 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 , [place]. tel: tel: [phone] [facility] Aug-0 Ashraf In Womens 4-201 [place]. Health TAMIKA, 3 700 PO Box Medical 1522, [address] [place], [facility] [place], 120, [id number], [facility] [place], tel: [phone] , [place]. tel: [phone] Family History Family Member Diagnosis Age At [...] Record Payers Payer name Insurance type Covered democrat ID Authorization(s) [facility] CI [id number] [employer] Plan Of [place] - Medicaid MC [id number] [facility] [id number] [facility] CI [id number] Social History Type Description Quantity Date Captured Alcohol Use Details No Caffeine Use Details Unknown Tobacco Use Status Smoking Status Former smoker Vital Signs Date / Height Weight BMI Pulse Blood Temperature Respiratory Body Head BMI Time: Rate Pressure Rate Surface Circumference percentile Area 0 2:03 kg/m PM eter (2) 157.50 24.6 123/73 2018 lbs 6 mm[Hg] 2:09 kg/m PM eter (2) Chief Complaint And [...] Complete OB Ultrasound > 14 Ordered Weeks ([id number]) Future Order: Radiology Order Ultrasound OB Follow-up ([id number]) Ordered Date Type Problem Goal Intervention Status Start Date Unknown. History Of Present Illness Encounter Date Complaint History Of Present Illness This patient has no known history of present illness Functional Status Encounter Date Functional Assessment Cognitive Assessment Unknown Medications Administered Medication Instructions Dosage Effective Dates (start - stop) Status Comments Drug Treatment Unknown Instructions Date Instruction Additional Information labor signs group B strep screening gestational glucose lab screening HIV and other [...]
--- OUTSIDE RECORDS SUMMARY | 2018-02-08 06:17 | External Medical Summary | Continuity of Care Document ---
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 Provider: Qian LUNDBERG, trimester, unsp30 8 700 [place] Ashraf PO Box weeks gestation Medical K, 700 1522, of [facility] [place], , [facility] [address], 120, Paul 120, [id number], [place], [place], [place], tel: [phone]. , [place]. tel: tel: [phone] [place] Encounter for Irving-0 Ashraf Referring In Womens suprvsn of normal 9-201 [place]. Provider: Qian LUNDBERG, , third 8 700 [place] Ashraf PO Box [email or web address] weeks Medical , 700 1522, gestation of [facility], , [facility] [address], 120, Paul 120, [id number], [place], [place], [place], tel:[phone]. , [place]. tel: tel: [phone] [place] Encounter for Dec-2 Ashraf Referring In Womens suprvsn of normal 6-201 [place]. Provider: Qian LUNDBERG, , second 7 700 [place] Ashraf PO Box [id number] weeks Medical , 700 1522, gestation of [facility], , [facility] [address], 120, Paul 120, [id number], [place], [place], [place], tel: [phone]. , [place]. tel: tel: [phone] [place] Encounter for Dec-0 Ashraf Referring In Womens suprvsn of normal 5-201 [place]. Provider: Qian LUNDBERG, , second 7 700 [place] Ashraf PO Box [email or web address] weeks Medical , 700 1522, gestation of [facility], , [facility] [address], 120, Paul 120, [id number], [place], [place], [place], tel:[phone]. [id number] , [place]. tel: tel: [phone] [place] Encounter for Nov-0 Ashraf Referring In Womens suprvsn of normal 6-201 [place]. Provider: Qian LUNDBERG, , second 7 700 [place] Ashraf PO Box [email or web address] weeks Medical K, 700 1522, gestation of [facility], , [facility] [address], 120, Paul 120, [id number], [place], [facility], [place], tel:[phone]. , [place]. tel: tel: [phone] [place] Matern care for Nov-0 Ashraf Referring In Womens Ultrasound oth or susp poor 6-201 [place]. Provider: Qian LUNDBERG, fetl grth, 2nd 7 700 [place] Ashraf PO Box tri, [email or web address] weeks Medical , 700 1522, gestation of [facility], , [facility] [address], 120, Paul 120, [id number], [place], [place], [place], tel: [phone]. , [place]. tel: tel: [phone] [place] Encounter for Oct-0 Sahraf Referring In Womens suprvsn of normal 3-201 [place]. Provider: Qian LUNDBERG, , second 7 700 [place] Ashraf PO Box [id number] weeks Medical , 700 1522, gestation of [facility], , [facility] [address], 120, Paul 120, [id number], [place], [place], [place], tel: [phone]. , [place]. tel: tel: [phone] Encounter for Sep-0 Ashraf Referring In Womens suprvsn of normal 5-201 [place]. Provider: Qian LUNDBERG, , first 7 700 [place] Ashraf PO Box [email or web address] weeks Medical , 700 1522, gestation of [facility], , [facility] [address], 120, Paul 120, [id number], [place], [facility], [place], tel:[phone]. , [place]. tel: tel: [phone] [facility] Hirsutism Sep-2 Ashraf Referring In Womens 8-201 [place]. Provider: Health TAMIKA, 6 700 [place] Ashraf PO Box Medical K, 700 1522, [place] [address], [facility] [address], 120, Paul 120, , [place], [place], [place], tel: [phone]. , [place]. tel: tel: [phone] [facility] HirsutismIrregula Sep- Ashraf In Womens r Menses 7- [place]. Health TAMIKA, 6 700 PO Box Medical 15[address], [place] [address] [place], [facility] [place], 120, , [facility] [place], tel: [phone] , [place]. tel: [phone] [place] Irregular Adria-2 Ashraf Referring In Womens MensesEncntr for 8- [place]. 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 , [place]. tel: tel: [phone] [place] Oct-0 Ashraf In Womens 4-201 [place]. Health TAMIKA, 3 700 PO Box Medical 15[address], [place] [address] [place], [facility] [place], 120, [id number], [facility] [place], tel: [phone] , [place]. tel: [phone] Family History Family Member Diagnosis Age At [...] Record Payers Payer name Insurance type Covered libertarian ID Authorization(s) [facility] CI [id number] [facility] [id number] [employer] [place] - Medicaid MC [id number] [facility] CI [id number] Social History Type Description Quantity Date Captured Alcohol Use Details No Caffeine Use Details Unknown Tobacco Use Status Smoking Status Former smoker Vital Signs Date / Height Weight BMI Pulse Blood Temperature Respiratory Body Head BMI Time: Rate Pressure Rate Surface Circumference percentile Area 23.2 -2017 1 3:01 kg/m PM eter (2) 154.60 24.2 116/66 2018 lbs 1 mm[Hg] 3:04 kg/m PM eter (2) Chief Complaint And [...] Complete OB Ultrasound > 14 Ordered Weeks (10229) Date Type Problem Goal Intervention Status Start [...]
--- OUTSIDE RECORDS SUMMARY | 2018-02-08 06:17 | External Medical Summary | Continuity of Care Document ---
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 Pap [...] Procedures Procedure Date OB Visit No Charge Glucose test Hemoglobin count, colorimetric Hematocrit blood count Venpnctr fngr/heel/ear stick routne Results Test Name Date and Time Measure Units Reference Range Abnormal Flag Comments Panel Description: Glucose [Mass/volume] in Serum or Plasma --1 hour post 50 g glucose PO GLUCOSE, GESTATIONAL 93 mg/dL <140 N Test performed at [facility] SCREEN (50G)-140 11:38:00 DIAGNOSTICS [id number] [place] [id number]: REYNALDO CAROLINA DO,MPH Panel Description: HEMOGLOBIN + HEMATOCRIT HEMOGLOBIN 11:38:00 11.7 g/dL 11.7-15.5 N HEMATOCRIT 11:38:00 35.3 % 35.0-45.0 N REPORT COMMENT:FASTING :NOTest performed at [facility] [id number] [place] [id number]: REYNALDO CAROLINA DO,MPH Advance Directives Directive Yes / No Effective Date File Name Unknown Encounters Encounter Practice Location Reason(s) Diagnoses Date Provider Care Team Description For Visit Members [place] Encounter for Irving-0 Ashraf Referring In Womens suprvsn of normal 9-201 [place]. Provider: Health TAMIKA, , third 8 700 [place] Ashraf PO Box [email or web address] weeks Medical , 700 1522, gestation of [facility], , [facility] Dr [address], 120, Paul 120, [id number], [place], [place], tel: [phone]. , [place]. tel: tel: [phone] [place] Encounter for Dec-2 Ashraf Referring In Womens suprvsn of normal 6-201 [place]. Provider: Health TAMIKA, , second 7 700 [place] Ashraf PO Box [email or web address] weeks Medical , 700 1522, gestation of [facility], , [facility] Dr [address], 120, Paul 120, [id number], [place], [place], [place], tel: [phone]. , [place]. tel: tel: [phone] [place] Encounter for Dec-0 Ashraf Referring In Womens suprvsn of normal 5-201 [place]. Provider: Health TAMIKA, , second 7 700 [place] Ashraf PO Box [email or web address] weeks Medical , 700 1522, gestation of [facility], , [facility] Dr [address], 120, Paul 120, [id number], [place], [place], tel:[phone]. , [place]. tel: tel: [phone] [place] Encounter for Nov-0 Ashraf Referring In Womens suprvsn of normal 6-201 [place]. Provider: Health TAMIKA, , second 7 700 [place] Ashraf PO Box [email or web address] weeks Medical , 700 1522, gestation of [facility], , [facility] Dr [address], 120, Paul 120, [id number], [place], [place], tel: [phone]. , [place]. tel: tel: [phone] [place] Matern care for Nov-0 Ashraf Referring In Womens Ultrasound oth or susp poor 6-201 [place]. Provider: Health TAMIKA, fetl grth, 2nd 7 700 [place] Ashraf PO Box tri, [email or web address] weeks Medical , 700 1522, gestation of [facility], , [facility] Dr [address], 120, Paul 120, [id number], [place], [place], tel: [phone]. , [place]. tel: tel: [phone] [place] Encounter for Oct-0 Ashraf Referring In Womens suprvsn of normal 3-201 [place]. Provider: Health TAMIKA, , second 7 700 [place] Ashraf PO Box [id number] weeks Medical , 700 1522, gestation of [facility], , [facility] Dr [address], 120, Paul 120, [id number], [place], [place], tel: [phone]. , [place]. tel: tel: [phone] [place] Encounter for Sep-0 Ashraf Referring In Womens suprvsn of normal 5-201 [place]. Provider: Health TAMIKA, , first 7 700 [place] Ashraf PO Box [email or web address] weeks Medical , 700 1522, gestation of [place] [facility] [place], , [facility] Dr [address], 120, Paul 120, [id number], [place], [place], [place], tel:[phone]. , [place]. tel: tel: [phone] [facility] Hirsutism Nov-2 Ashraf Referring In Womens 8-201 [place]. Provider: Qian LUNDBERG, 6 700 [place] Ashraf PO Box [facility], [address], [place] [address], [facility] Dr [address], 120, Paul 120, , [place], [place], [place], tel: [phone]. , [place]. tel: tel: [phone] [place] HirsutismIrregula Nov-1 Ashraf In Womens r Menses 7-201 [place]. Health TAMIKA, 6 700 PO [facility] [address], [place] [address] [place], [facility] [place], 120, [id number], [place], [place], tel:[phone] , [place]. tel: [phone] [place] Irregular Adria-2 Ashraf Referring In Womens MensesEncntr for 8-201 [place]. 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 , [place]. tel: tel: [phone] [place] Oct-0 Ashraf In Womens 4-201 [place]. Health TAMIKA, 3 700 PO Box Medical [address], [place] [address] [place], [place], 120, [id number], [place], [place], tel:[phone] , [place]. tel: [phone] Family History Family Member Diagnosis Age At [...] Insurance type Covered constitution party ID Authorization(s) [facility] [id number] [facility] [id number] Social History Type Description Quantity Date Captured Alcohol Use Details No Caffeine Use Details Unknown Tobacco Use Status Smoking Status Former smoker Vital Signs Date / Height Weight BMI Pulse Blood Temperature Respiratory Body Head BMI Time: Rate Pressure Rate Surface Circumference percentile Area 148.20 23.2 108/ lbs 1 mm[Hg] 10:45 kg/m AM eter (2) Chief Complaint And [...] Complete OB Ultrasound > 14 Ordered Weeks (11530) Date Type Problem Goal Intervention Status Start [...]
[2018-02-08 06:50] VITALS: BMI 24.5
--- NOTE | 2018-02-08 08:01 | Anesthesia Preoperative Report ---
Anesthesia Epidural/Spinal Rec - Date and Time Date: 02/08/18 Preoperative Diagnosis: Procedure: Labor Epidural Plan: Epidural - Vital Signs Vital Signs: Temperature 98.0 F 02/08/18 06:38 Pulse Rate 77 02/08/18 06:38 Respiratory Rate 16 02/08/18 06:38 Blood Pressure 120/75 02/08/18 06:38 Pulse Oximetry 97 02/08/18 06:38 /Para: P:1 - Medictaions & Allergies Inpatient Medications: Current Medications Acetaminophen (Tylenol) 500 - 1,000 mg PO Q4H PRN PRN Reason: Pain Al Hydroxide/Mg Hydroxide (Maalox Plus) 30 ml PO Q3H PRN PRN Reason: Indigestion Calcium Carbonate (Tums) 500 - 1,000 mg PO Q2H PRN PRN Reason: Indigestion Carboprost Tromethamine (Hemabate) 250 mcg IM O PRN PRN Reason: .Downtime Dextrose/Lactated Ringer's (Dextrose 5%-Lactated Ringers) 1,000 mls @ 125 mls/ hr IV .Q8H PRN PRN Reason: Labor Last Admin: 02/08/18 07:13 Dose: 125 mls/hr Lactated Ringer's (Lactated Ringers) 1,000 mls @ 999 mls/hr IV .Q1H1M PRN Last Admin: 02/08/18 07:13 Dose: 999 mls/hr Oxytocin (Pitocin Drip) 30 unit in 500 mls @ 2 mls/hr IV .Q24H PRN; Protocol PRN Reason: Induction/Augmentation Last Admin: 02/08/18 07:00 Dose: 2 mls/hr Lidocaine HCl (Xylocaine-Mpf 1% Vial) 0.2 mg ID O PRN PRN Reason: IV Start Methylergonovine Maleate (Methergine) 0.2 mg IM O PRN Misoprostol (Cytotec) [address] ONCE PRN Allergies/Adverse Reactions: Allergies Allergy/AdvReac Type Severity Reaction Status Date / Time No Known Drug Allergies Allergy Unknown Verified 01/22/18 10:32 metronidazole Allergy Verified 01/22/18 10:31 - Home Medications Home Medications: Home Medications Medication Instructions Recorded Confirmed Type Vits W-Ca,Fe,Fa(<1MG) 1 tab PO #0 02/10/10 History ( Vitamins) - Medical History Respiratory: Reports: Asthma (no meds) Other History: Reports: Now - Surgical History HEENT Surgeries: Reports: Tonsillectomy (asa child) Reproductive Surgery/Treatment: DENIES: Section Anesthesia Reactions: None Hx Family Anesthesia Reaction: No History of Motion Sickness: No - Social History Smoking Status: Former smoker Substance Use Type: does not use Alcohol Intake Frequency: does not drink - Pertinent Findings Lab Data: CBC and BMP 02/08/18 06:36 - Physical Exam Respiratory Exam: lungs clear Cardiovascular Exam: regular rate and rhythm, no murmur - Airway Assessment Mallampati Score: I TMD: 3 Fingerbreadths Neck Extension: good Overall Assessment: no airway concerns - ASA ASA Score: 2 - Discussion Discussion: Discussed risks/options/alternatives of anesthesia and questions answered. Patient consents. Nursing pain assessment noted. Attestation Statement: Prior to the delivery of any anesthetic medication, I examined the patient, developed the plan, obtained the patient's consent and discussed the risk and benefits of the procedure with the patient/guardian.
[2018-02-08] MEDS ORDERED: BUTORPHANOL 2 MG/ML INJECTION IVP PRN (13:12)
[2018-02-08] MEDS ORDERED: HYDROCORTISONE 2.5% CREAM 30gm RECTALLY PRN (14:30)
[2018-02-08] MEDS ORDERED: OXYTOCIN DRIP 30 UNIT/500 ML ML IV SCH (14:30)
[2018-02-08] MEDS ORDERED: MEASLES-MUMPS-RUBELLA VACCINE 0.5ml INJECTION SQ ONE (14:30)
[2018-02-08] MEDS ORDERED: HYDROCODONE/APAP 5mg/325mg TABLET PO PRN (14:30)
[2018-02-08] MEDS ORDERED: DiphenhydrAMINE 25 MG CAPSULE PO PRN (14:30)
[2018-02-08] MEDS: IBUPROFEN 800 MG TABLET PO PRN (15:41)
--- NOTE | 2018-02-08 16:24 | Labor and Delivery Note ---
DATE OF DELIVERY 02/08/2018 FABBY Min is a 27-year-old 3, para 1 at 39 weeks 2 days gestational age who was brought in for a logistical Pitocin induction this morning. Her membranes were ruptured artificially, returning clear fluids. She progressed nicely throughout labor and only had to push for a few contractions. She had a spontaneous vaginal delivery of a viable male infant, Apgars 8/9, weight 3266 g , name "Sean." The baby was vigorous at delivery so he was placed on mom's abdomen and the cord clamping was delayed for two minutes. This placenta delivered spontaneously. She had a small bleeding laceration at 9 o'clock on the hymenal ring that was repaired after it was injected with local. She also had a first-degree perineal laceration that was also repaired due to bleeding. Mom and baby tolerated the delivery well. ADAN
[2018-02-09] MEDS: IBUPROFEN 800 MG TABLET PO PRN ×3 (01:00→18:26)
[2018-02-09 01:41] VITALS: RESP 16
[2018-02-09] MEDS ORDERED: DOCUSATE CALCIUM 240 MG CAPSULE PO SCH (09:00)
--- NOTE | 2018-02-09 09:31 | OB/GYN Progress Note ---
OB-PP Progress Note - General PPD1 POD:: POD1 Maternal Group B Strep: Negative Maternal blood type: B+ Maternal Rubella Status: Not Immune - Subjective Date: 02/09/18 Lochia: Minimal Pain: controlled Voiding: voiding - Objective Vital Signs: Last Vital Signs Temp 98.2 F 02/09/18 07:03 Pulse 71 02/09/18 07:03 Resp 16 02/09/18 07:03 BP 103/61 02/09/18 07:03 Pulse Ox 99 02/09/18 07:03 General: alert and oriented Cardiovascular: regular rate,rhythm Respiratory: non-labored Abdomen: fundus firm, non-tender Incision: normal Extremities: non-tender - Assessment Assessment: SP, - Plan Plan: routine care, discharge home
[2018-02-09] MEDS ORDERED: MEASLES-MUMPS-RUBELLA VACCINE 0.5ml INJECTION SUB-Q ONE (13:47)
[2018-02-09 14:36] VITALS: O2SAT 100
[2018-02-09 19:41] VITALS: BP 120/66; PULSE 64; TEMP 98
== END 2018-02-09 18:37 | disposition home or self-care (01) | DRG 775 ==
LOC: MC 06:08
PROVIDERS: ADMIT Obstetrics & Gynecology; ATTEND Obstetrics & Gynecology